=== PATIENT | male | born 1955 | race Caucasian/White ===

== ENCOUNTER 2025-10-02 04:56 | Emergency (ER) | payer MEDICARE, SELFPAY ==
--- OUTSIDE RECORDS SUMMARY | 2017-11-01 10:18 | XMS_ITS | Continuity of Care Document ---
Author Organization [facility] Address [address] [place] [address] Phone Care Team Providers Care Power Plant Superintendent Name Role Phone [place] DPTEmily Unavailable Unavailable Procedures Procedure Date Therapeutic Exercise Therapeutic Activities Neuromuscular Re-Ed Therapeutic Exercise Therapeutic Activities Neuromuscular Re-Ed PT Evaluation Moderate Complexity Therapeutic Exercise Therapeutic Activities Manual Therapy Advance Directives Directive Yes / No Effective Date File Name No Information Encounters Encounter Description Practice Location Reason(s) For Visit Diagnoses Date Provider Providers Copied on Encounter [facility] [address] [place] [address], [id number], tel:[phone] [place] No Information 9 8 Jennifer Emily. [address] [facility], [address], [place], [facility], [place]. tel: [phone] [address], [place], [place], [id number], tel:[phone] [place] No Information 8-201 7 [place] Emily. [address] [facility], [address], [address], [place]. tel: [phone] Referring Provider: Christian Leung, [address] [facility] [address], [place], [address]. tel:[phone], [id number], tel:[phone] [place] No Information 7 Jennifer Emily. [address] [facility], [address], [place], [place], [facility], . [phone] Referring Provider: Christian Leung, [address] [place] [address] [address] 5, [place], [place], [facility]. tel:[phone] [place], [address], [place], [place], [id number], tel:[phone] [place] Pain in right shoulderCervical giaStiffness of right shoulder, not elsewhere classifiedOth symptoms and signs involving the musculoskeletal systemOther specified postprocedural statesSecondary and unsp malignant neoplasm of lymph node, unspSquamous cell carcinoma of skin, unspecified Jennifer Emily. [address] [facility], [address], [place], [place], [facility], . tel:[phone] Referring Provider: Christian Leung, [address] [place] [address] [address] 5, [place], [place], [facility]. tel:[phone] Family History Family Member Type Diagnosis Age At Onset No Information Payers Payer name Insurance type Covered democrat ID Authoriza tion(s) No Information Social History Type Description Quantity Date Captured Comments Sex Male Smoking Status No Information Chief Complaint And Reason For Visit No Information Reason For Referral Reason For Referral No Information History Of Present Illness Encounter Date Complaint History Of Prese nt Illness No Information Functional Status Date Functional Assessmen t No Information Instructions Date Instruction Additional Infor mation No Information Assessments Type Assessment Date No Information Patient Care Teams Name Effective Dates (start - stop) Status Members No Information
--- NOTE | ~2025-10-02 | CT_ITS ---
EXAMINATION: CT abdomen pelvis w con DATE: 10/02/2025 05:56 INDICATION: Left upper quadrant abdominal pain. TECHNIQUE: Computed tomography (CT) of the abdomen and pelvis was performed with 100 mL Omnipaque 350 intravenous contrast. Automated exposure control and iterative reconstruction technique were employed. The dose-length product was 808.10 mGy-cm. COMPARISON: None. FINDINGS: The visualized portions of the lung bases demonstrate mild atelectasis. No pleural effusion. The heart size is normal. No pericardial effusion. There are coronary artery calcifications. The liver, gallbladder, spleen, pancreas, adrenal glands, and kidneys are normal. There are multiple dilated loops of small bowel. The appendix is normal. There are no pathologically enlarged lymph nodes. There is no free intraperitoneal fluid. There is a 3.3 cm fusiform aneurysm of infrarenal aorta. There is a chronic compression fracture of L2. There is mild chronic anterior wedging of T12. There is severe lumbar spondylosis and moderate thoracic spondylosis. IMPRESSION: 1. Dilated small bowel, consistent with adynamic ileus. 2. 3.3 cm fusiform aneurysm of infrarenal aorta. Reviewed, dictated and finalized at [facility]
--- OUTSIDE RECORDS SUMMARY | 2025-10-02 04:58 | XMS_ITS | Encounter Summary ---
Author Organization [facility] Address [address] [place] [address] Phone Care Team Providers Care Polysomnograph Tech Name Role Phone El Han MD Primary Care Provider Jayden Reyes MD Unavailable [phone] Christian Leung MD Unavailable [phone] Bethel Benjamin MD Unavailable [phone] Conchita Bassett SIGNWRITER Unavailable Conchita Bassett SIGNWRITER Unavailable [phone] Encounter Details Date Type Department Care Team (Late st Contact Info) Description 10/31/2017 Orders Only [facility] ProviderTay MD [address] [place] [address] Social History Tobacco Use Types Packs/Day Years Used Date Smoking Tobacco: Never Alcohol Use Standard Drinks/Week Comments Yes 0 (1 standard drink = 0.6 oz pur e alcohol) Sex and Gender Information Value Date Recorded Sex Assigned at Not on file 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 us Historical Provider MD KENNY XR PROCEDURES Final R esult documented in this encounter Visit Diagnoses Not on filedocumented in this encounter Care Teams Polysomnograph Tech Relationship Specialty Start Date End Date El Han MD [address] [place] [address] PCP - General 05/04/07 Jayden Reyes MD [address] [place] [address] Radiation Oncologist Radiation Oncology 05/05/18 Christian Leung MD [address] DEPT OTOLARYNGOLOGY, [address] [place] [address] Referring Physician Otolaryngology 05/05/18 Bethel Benjamin MD [address] [facility] [address] [place] [address] Medical Oncologist/Manufacturing Technologist Medical Oncology 05/05/18 Conchita Bassett NP [address] [place] [address] Nurse Practitioner Nurse Practitioner 11/03/20 Conchita Bassett NP [address] [place] [address] Nurse Practitioner Nurse Practitioner 12/01/21 documented as of this encounter
--- OUTSIDE RECORDS SUMMARY | 2025-10-02 04:58 | XMS_ITS | Encounter Summary ---
Author Organization [facility] Address [address] [place] [address] Phone Care Team Providers Care Business Coordinator Name Role Phone El Han MD Primary Care Provider Jayden Reyes MD Unavailable [phone] Christian Leung MD Unavailable [phone] Bethel Benjamin MD Unavailable [phone] Conchita Bassett MOTORCYCLE TESTER Unavailable Conchita Bassett MOTORCYCLE TESTER Unavailable [phone] Encounter Details Date Type Department Care Team (Late st Contact Info) Description 01/02/2018 Orders Only 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 us Historical Provider MD KENNY XR PROCEDURES Final R esult documented in this encounter Visit Diagnoses Not on filedocumented in this encounter Care Teams Business Coordinator Relationship Specialty Start Date End Date El Han MD [address] [place] [address] PCP - General 05/04/07 Jayden Reyes MD [address] [place] [address] Radiation Oncologist Radiation Oncology 05/05/18 Christian Leung MD [address] DEPT OTOLARYNGOLOGY, [address] [place] [address] Referring Physician Otolaryngology 05/05/18 Bethel Benjamin MD [address] [facility] [address] [place] [address] Medical Oncologist/Tape Edge Machine Operator Medical Oncology 05/05/18 Conchita Bassett NP [address] [place] [address] Nurse Practitioner Nurse Practitioner 11/03/20 Conchita Bassett NP [address] [place] [address] Nurse Practitioner Nurse Practitioner 12/01/21 documented as of this encounter
--- OUTSIDE RECORDS SUMMARY | 2025-10-02 04:58 | XMS_ITS | Clinical Summary ---
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 Diagnosis. Left base of tongue, glossal tonsillar sulcus squamous cell carcinoma Right selective neck dissection levels 2,3,and 4 (Cash 05/31/17) Transoral robotic assisted left partial glassectomy base of tongue resection (Cash 05/26/17) Left selective neck dissection levels, 2,3, and 4 (Cash 05/26/17) Ligation of left lingual and facial artery (Madhu 05/26/17) POART (Benjamin Reyes completed 08/26/2017) Encounter for follow-up surveillance of tongue c ancer 05/05/2018 Systemic lupus erythematosus 04/29/2017 Overview (04/29/2017): Has positive TATY (1:80 in speckled pattern) with positive anti-SSA/SSB abs. 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 Has no systemic complaints. May represent subacute cutaneous lupus vs discoid lupus vs SLE. Has done well on HCQ. Left cervical chain biopsy reveals malignancy (04/2017), PET scan to follow Assessment & Plan (04/29/2017 11:10 AM CDT): Continues to do well on HCQ 200 Mg bid with no recurrence of rash on forearms or elsewhere despite the summer months. Has no rash, photosensitivity or other systemic complaints. Exam findings minimal today. Pt was diagnosed with a malignancy based on left cervical chain lymph node biopsy last week although uncertain what type of malignancy and is scheduled for PET scan next week. Pt is concerned about staying on HCQ with cancer and potential treatment. I reassured pt there is no contraindication for being on HCQ despite malignancy and would recommend staying on at this point. He will discuss with his oncologist and decide. Will cont HCQ 200 mg bid for now. Labs as below. Pt to call for f/u in 3-6 months pending cancer treatment. DDD (degenerative disc disease), cervical 2016 Overview (04/29/2017): Per MRI. Has had interventional injections into c-spine per pain management with minimal benefit. PT offered no benefit. Uses ibuprofen 800 mg prn which helps. Assessment & Plan (04/29/2017 11:15 AM CDT): Per MRI. Has had interventional injections into c-spine per pain management with minimal benefit. PT offered no benefit. Uses ibuprofen 800 mg prn which helps. Surgical History Surgery Date Site/Laterality Comments APPENDECTOMY Appendectomy KNEE SURGERY Knee Surgery - (Added by TW Conv) CA APPENDECTOMY Appendectomy - (Added by TW Conv) Medical History Medical History Date Comments Arthritis Arthritis Hx Other Medical 2000 Knee SX; Latera lity: right Personal history of other di seases of the musculoskeletal system and connective tissue History of systemic lupus er ythematosus (SLE) - (Added by TW Conv) Family History Medical History Relation Name Comments COPD Father Family history of chronic obstructive pulmonary disease - (Added by TW Conv) Coronary artery disease Father Fami ly history of coronary artery disease - (Added by TW Conv) Diabetes Father Family history of diabetes mellitus - (Added by TW Conv) Relation Name Status Comments Father Social History Tobacco Use Types Packs/Day Years Used Date Smoking Tobacco: Former Smokeless Tobacco: Never Tobacco Cessation:Counseling Given: Not Answered Alcohol Use Standard Drinks/Week Comments Yes 0 (1 standard drink = 0.6 oz pur e alcohol) Personal Safety Answer Date Recorded Getting School Help Needed Not on file Sex and Gender Information Value Date Recorded Sex Assigned at Not on file 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 Gender Identity Not on file Sexual Orientation Not on file Last Filed Vital Signs Vital Sign Reading Time Taken Comments Blood Pressure 119/80 07/05/2018 11:44 AM CDT Pulse 89 07/05/2018 11:44 AM CDT Temperature 36.7 C (98 F) 07/05/2018 11:44 AM CDT Respiratory Rate 18 07/05/2018 11:44 AM CDT Oxygen Saturation 96% 07/05/2018 11:44 AM CDT Inhaled Oxygen Concentration - - Weight 100.7 kg (222 lb) 05/25/2023 11:28 AM CDT Height 172.7 cm (5' 8) 10/04/2018 11:12 AM TRANSFORMER ASSEMBLY SUPERVISOR Body Mass Index 33.75 10/04/2018 11:12 AM TRANSFORMER ASSEMBLY SUPERVISOR Plan of Treatment Health Maintenance Due Date Last Done Comments Colon Cancer Screening-Colonoscopy 1955 Depression Screening 1955 Fall Risk Assessment 1955 Hepatitis C Screening 1955 Prostate Cancer Screening-PSA 1955 DTaP/Tdap/Td Vaccine (1 - Tdap) 02/23/1967 Hepatitis B Screening 02/23/1974 Pneumococcal vaccine 65+ (1 of 2 - PCV) 02/23/1975 Zoster Vaccine (1 of 2) 02/23/1975 Abdominal Aortic Aneurysm (AAA) Screen 02/23/2021 Well Visit 65+ 02/23/2021 Influenza Vaccine (#1) 2025 Insurance [employer] [facility] [id number] [employer] OPEN ACCESS Care Teams Pig Sticker Relationship Specialty Start Date End Date El Han MD [address] [place] [address] PCP - General 05/04/07 Jayden Reyes MD [address] [facility] [address] [place] [address] Radiation Oncologist Radiation Oncology 05/05/18 Christian Leung MD [address] [facility] DEPT OTOLARYNGOLOGY, [address] [address] Referring Physician Otolaryngology 05/05/18 Bethel Benjamin MD [address] [facility] [address] [place] [address] Medical Oncologist/Cotton Jammer Medical Oncology 05/05/18 Conchita Bassett NP [address] [facility] [address] [place] [address] Nurse Practitioner Nurse Practitioner 11/03/20 Conchita Bassett NP [address] [place] [address] Nurse Practitioner Nurse Practitioner 12/01/21
--- OUTSIDE RECORDS SUMMARY | 2025-10-02 04:58 | XMS_ITS | Encounter Summary ---
Author Organization [facility] Address [address] [place] [address] Phone Care Team Providers Care Tubing Supervisor Name Role Phone El Han MD Primary Care Provider Jayden Reyes MD Unavailable [phone] Christian Leung MD Unavailable [phone] Bethel Benjamin MD Unavailable [phone] Conchita Bassett WOOD HEEL FLAP RUBBER Unavailable Conchita Bassett WOOD HEEL FLAP RUBBER Unavailable [phone] Encounter Details Date Type Department Care Team (Late st Contact Info) Description 10/21/2017 Orders Only [facility] ProviderTay MD [facility] [place] [address] Social History Tobacco Use Types Packs/Day Years Used Date Smoking Tobacco: Never Alcohol Use Standard Drinks/Week Comments Yes 0 (1 standard drink = 0.6 oz pur e alcohol) Sex and Gender Information Value Date Recorded Sex Assigned at Not on file 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 us Historical Provider MD KENNY XR PROCEDURES Final R esult documented in this encounter Visit Diagnoses Not on filedocumented in this encounter Care Teams Tubing Supervisor Relationship Specialty Start Date End Date El Han MD [address] [place] [address] PCP - General 05/04/07 Jayden Reyes MD [address] [place] [address] Radiation Oncologist Radiation Oncology 05/05/18 Christian Leung MD [address] DEPT OTOLARYNGOLOGY, [address] [place] [address] Referring Physician Otolaryngology 05/05/18 Bethel Benjamin MD [address] [facility] [address] [place] [address] Medical Oncologist/Paper Carrier Medical Oncology 05/05/18 Conchita Bassett NP [address] [place] [address] Nurse Practitioner Nurse Practitioner 11/03/20 Conchita Bassett NP [address] [place] [address] Nurse Practitioner Nurse Practitioner 12/01/21 documented as of this encounter
[2025-10-02 05:08] VITALS: BP 110/67; PULSE 105; RESP 18; TEMP 36.7; O2SAT 99
--- NOTE | 2025-10-02 05:14 | ED_ITS ---
HPI - General Adult General Chief complaint: Abdominal Pain Stated complaint: stomach ache, throwing up x5 hrs Time Seen by Provider: 10/02/25 05:02 History of Present Illness HPI narrative: 70-year-old male present to the emergency department for evaluation for nausea vomiting abdominal pain. Patient reports symptoms started approximately 5 hours prior to arrival. Patient reports he still has gallbladder but states he did have his appendix removed. Patient denies any prior history of gallbladder disease. Patient denies any prior history of carotid disease. Patient does have prior history of throat cancer that was treated approximately 5-6 years ago. Related Data Allergies Allergy/AdvReac Type Severity Reaction Status Date / Time No Known Allergies Allergy Unknown Verified 09/18/25 08:55 Review of Systems 2 Review of Systems: All systems reviewed & are unremarkable except as noted in HPI and below PMFSH Past Medical History Medical History HTN (hypertension) Erectile dysfunction Malignant neoplasm of head, face and neck Secondary and unspecified malignant neoplasm of lymph node, unspecified Tongue cancer Surgical History Surgical History Hx of bilateral cataract extraction Status post partial glossectomy Status post right knee surgery History of appendectomy Family History Family History Father Family history of chronic obstructive pulmonary disease Family history of diabetes mellitus in first degree relative Sibling Family history of diabetes mellitus in first degree relative Mother Family history of coronary artery disease Social History Social History Social History: Years smoked: 1 Smoking status: Former smoker Second hand tobacco smoke exposure: No Smoking end date: 10/24/77 Alcohol intake: current Drinks per week: 10 Substance use: never Substance use type: does not use Lack of Transportation: No Lack of Food: Never True Current Housing: I Have Housing Concerned About Future Housing: No Difficulty Paying Gas/Electric Bills: No Difficulty Paying for Meds: No Currently Unemployed: No Education: Don't Know Difficulty w/ Childcare or Family Care: No Living arrangements: with family Occupation/Education: occupation Gender identity (if verbalized by the patient): Male Sexual Orientation (if Verbalized by the Patient): Straight or Heterosexual Exam 2 Narrative: APPEARANCE: Uncomfortable. HEAD: normocephalic, atraumatic. EYES: PERRLA/EOMI, conjunctivae clear. NOSE: Normal no drainage EARS:TMS clear with good light reflex. THROAT: Pharynx clear, no exudate. NECK: Supple. No adenopathy, no masses. RESPIRATORY: Airway patent, respirations nonlabored. Clear to auscultation bilaterally, no rales, rhonchi, wheezing. CARDIOVASCULAR: Regular rate and rhythm without murmurs rubs or gallops. ABDOMINAL: Right upper quadrant tenderness to palpation MUSCULOSKELETAL: Moves all extremities. Strength/ROM intact, No edema, No calf tenderness. NEURO: Alert. Cranial nerves II through XII intact. Good gait. Good coordination SKIN: Warm, dry. Normal Color Course Vital Signs Vital signs: Vital Signs Temperature 98.0 F 10/02/25 05:08 Pulse Rate 105 H 10/02/25 05:08 Respiratory Rate 18 10/02/25 05:08 Blood Pressure 110/67 10/02/25 05:08 Pulse Oximetry 99 10/02/25 05:08 Oxygen Delivery Room Air 10/02/25 05:08 Temperature 98.0 F 10/02/25 05:08 Pulse Rate 94 10/02/25 06:01 Respiratory Rate 15 10/02/25 06:01 Blood Pressure 112/72 10/02/25 06:01 Pulse Oximetry 96 10/02/25 06:01 Oxygen Delivery Room Air 10/02/25 05:08 [facility] Narrative Medical decision making narrative: 70-year-old male presents to the emergency department for evaluation for fires of abdominal distension. Patient's CT does show multiple loops of dilated small bowel containing air-fluid levels. There is no discrete transition point to suggest high-grade obstruction. I discussed results with the patient and gave options for admission to treat this as a small bowel obstruction or discharged home with clear liquid diet and medications for nausea control and patient strongly prefers to be discharged to home. Patient family also educated on reasons to return to the emergency department. All questions concerns were addressed patient was well-appearing at time of discharge. Patient was afebrile with no leukocytosis and a stable hemoglobin of 16.1 no lactic acid elevation and no acute abnormalities on the CMP. Lab Data 10/02/25 05:13 10/02/25 05:13 Labs: Lab Results 10/02/25 10/02/25 Range/Units 05:13 06:10 WBC 9.6 (4.5-10.0) K/mm3 RBC 5.09 (4.6-6.20) M/mm3 Hgb 16.1 (14.0-18.0) g/dL Hct 47.8 (42.0-52.0) % MCV 93.9 (80-100) fl MCH 31.6 (26-34) pg MCHC 33.7 (32-36) g/dl RDW 13.0 (11.5-14.5) % Plt Count 211 (150-375) k/mm3 MPV 9.5 (7.4-10.4) fl Immature Gran % (Auto) 0.4 (0-0.5) % Neut % (Auto) 73.7 H (45.5-73.1) % Lymph % (Auto) 18.6 (18.3-44.2) % [place] % (Auto) 5.5 (2.6-8.5) % Eos % (Auto) 1.7 (0-4.4) % Baso % (Auto) 0.1 L (0.2-1.2) % Lymph # (Auto) 1.78 (0.9-3.2) K/mm3 [place] # (Auto) 0.5 (0.1-0.6) K/mm3 Eos # (Auto) 0.2 (0-0.3) K/mm3 Baso # (Auto) 0.0 (0.0-0.1) K/mm3 Abs Immat Gran (auto) 0.04 H (0.00-0.031) K/mm3 Absolute Neuts (auto) 7.1 H (1.3-6.7) K/mm3 Absolute Nucleated RBC 0.000 (0.0-0.012) K/mm3 Nucleated RBC % 0.0 (0.0-0.2) % Sodium 137 (137-145) mmol/L Potassium 4.3 (3.4-5.0) mmol/L Chloride 100 (98-107) mmol/L Carbon Dioxide 27 (22-30) mmol/L Anion Gap 10 (4-12) mmol/L BUN 23 H (9-20) mg/dL Creatinine 1.07 (0.7-1.3) mg/dL Estim Creat Clear Calc 60 ml/min Estimated GFR > 60 (59 - ) Glucose 150 H (65-110) mg/dL Lactic Acid 1.7 (0.7-2.0) mmol/L Calcium 10.4 H (8.4-10.2) mg/dL Total Bilirubin 0.7 (0.2-1.3) mg/dL AST 26 (17-59) U/L ALT 23 (6-50) U/L Alkaline Phosphatase 71 (38-126) U/L Total Protein 8.5 H (6.3-8.2) g/dL Albumin 4.9 (3.5-5.1) g/dL Lipase 77 (23-300) U/L Urine Color Yellow (Yellow) Urine Appearance Cloudy H (Clear) Urine pH 8.0 (5.0-9.0) Ur Specific Gypsy > 1.045 H (1.001-1.035) Urine Protein Trace (Negative) mg/dL Urine Glucose (UA) Negative (Negative) mg/dL Urine Ketones Trace H (Negative) mg/dL Ur Blood (Man) Negative (Negative) Urine Nitrate Negative (Negative) Urine Bilirubin Negative (Negative) Urine Urobilinogen 1.0 (<2.0) mg/dL Leukocyte Esterase Rfl Negative (Negative) RENU/UL Urine RBC 0-2 (0-2) /hpf Urine WBC 0-5 (0-3) /hpf Ur Squamous Epith Cells None seen (Few) /hpf Urine Bacteria None seen /hpf Urine Casts 3-5 Discharge Plan Discharge Clinical Impression: Nausea & vomiting, Ileus Patient Disposition: Home Condition: Stable Instructions: Antibiotic Form, Clear Liquid Diet (ED), Abdominal Pain (ED) Additional Instructions: Zofran for nausea control. Reglan as needed for additional nausea control. Follow a clear liquid diet. If you have worsening symptoms and please call or return to the emergency department. Patient Language: Kazakh Prescriptions: New ondansetron 4 mg tablet,disintegrating 4 mg PO Q8H PRN (Reason: nausea and vomiting) Qty: 14 0RF metoclopramide HCl [Reglan] 10 mg tablet 10 mg PO Q6H PRN (Reason: nausea and vomiting) Qty: 14 0RF No Action latanoprost 0.005 % drops 1 drp EACH EYE QPM Qty: 2.5 0RF lisinopril 10 mg tablet 10 mg PO DAILY Qty: 30 5RF tadalafil [Cialis] 20 mg tablet 20 mg PO DAILY PRN (Reason: sexual activity) Qty: 10 5RF Rx Instructions: administer approximately 30min before sexual activity; do not use more than 1 dose per 24hrs ibuprofen 800 mg tablet See Rx Instructions .ROUTE .COMPLEX Qty: 270 1RF Dose Instruction: TAKE 1 TABLET BY MOUTH 3 TIMES A DAY WITH FOOD Rx Instructions: TAKE 1 TABLET BY MOUTH 3 TIMES A DAY WITH FOOD Follow-up/Referrals: lE Han MD [Primary Care Provider, Family Practice]
[2025-10-02] MEDS: LACTATED RINGERS 1,000 ML 999 ML IV CONT (05:19)
[2025-10-02] MEDS: ONDANSETRON INJ 4 MG/2 ML VIAL IV PUSH (05:19)
[2025-10-02 05:23] LABS: Hematocrit 47.8 % (42.0-52.0); Hemoglobin 16.1 g/dL (14.0-18.0); Immature Granulocyte Percent A 0.4 % (0-0.5); Lymphocytes Absolute Auto 1.78 K/mm3 (0.9-3.2); Mean Corpuscular HGB Conc 33.7 g/dl (32-36); Mean Corpuscular Hemoglobin 31.6 pg (26-34); Mean Corpuscular Volume 93.9 fl (80-100); Nucleated Red Blood Cells Absolute Auto 0.000 K/mm3 (0.0-0.012); Nucleated Red Blood Cells Perc 0.0 % (0.0-0.2); Platelet Count Result 211 k/mm3 (150-375); Red Blood Count 5.09 M/mm3 (4.6-6.20); White Blood Count 9.6 K/mm3 (4.5-10.0)
[2025-10-02 05:30] VITALS: BP 123/98; PULSE 92; RESP 14; O2SAT 95
[2025-10-02 05:36] LABS: Alanine Aminotransferase 23 U/L (6-50); Albumin Level 4.9 g/dL (3.5-5.1); Alkaline Phosphatase 71 U/L (38-126); Anion Gap 10 mmol/L (4-12); Aspartate Amino Transferase 26 U/L (17-59); Bilirubin,Total 0.7 mg/dL (0.2-1.3); Blood Urea Nitrogen 23 mg/dL (9-20); Calcium 10.4 mg/dL (8.4-10.2); Carbon Dioxide 27 mmol/L (22-30); Chloride 100 mmol/L (98-107); Estimated CRCL calculation 60 ml/min; Estimated Glomerular Filt Rate > 60; Glucose 150 mg/dL (65-110); Lipase 77 U/L (23-300); Potassium 4.3 mmol/L (3.4-5.0); Sodium 137 mmol/L (137-145); Total Protein 8.5 g/dL (6.3-8.2)
[2025-10-02 05:59] VITALS: BP 120/76; PULSE 97; RESP 20; O2SAT 96
[2025-10-02 06:01] VITALS: BP 112/72; PULSE 94; RESP 15; O2SAT 96
[2025-10-02] MEDS: BELLADONNA ALK/PHENOB ELIX 10 ML, MAG HYDROX/ALUMINUM HYD/SIMETH 30 ML, LIDOCAINE 2% VI... PO (06:18)
[2025-10-02] MEDS: PANTOPRAZOLE SODIUM IV 40 MG VIAL IV PUSH (06:25)
[2025-10-02 06:50] LABS: Add Urine Microscopic? YES; Appearance Urine Cloudy (Clear); Glucose Urine UA Negative (Negative); Leukocyte Esterase Ur Negative LEU/UL (Negative); Nitrate Urine Negative (Negative); Specific Grav Ur > 1.045 (1.001-1.035)
[2025-10-02 07:25] VITALS: BP 111/81; PULSE 92; RESP 15; O2SAT 100
== END 2025-10-02 07:26 | disposition home or self-care (01) ==
PROVIDERS: Emergency Provider Emergency Medicine; PCP Family Medicine
DX: K56.7 Ileus, unspecified (principal); R11.2 Nausea with vomiting, unspecified; I10 Essential (primary) hypertension; Z85.810 Personal history of malignant neoplasm of tongue; Z85.79 Personal history of other malignant neoplasms of lymphoid, hematopoietic and related tissues; Z87.891 Personal history of nicotine dependence; Z98.42 Cataract extraction status, left eye; Z98.41 Cataract extraction status, right eye; Z79.899 Other long term (current) drug therapy; I71.43 Infrarenal abdominal aortic aneurysm, without rupture
CPT/HCPCS: 36415; 74177; 80053; 81001; 83605; 83690; 85025; 96361; 96374; 96375; 99284; A9270; J2405; J2470; J7120; Q9967